=== PATIENT | male | born 2005 | race Hispanic/Latino ===

== ENCOUNTER 2024-05-05 01:49 | Observation (INO) | payer SELFPAY ==
--- OUTSIDE RECORDS SUMMARY | 2024-05-05 01:52 | XMS REPORT | Continuity of Care Document ---
Author Name Unknown Address [address] [place] [address] th[address] Address [address] [place] [address] 1 [address] [place] [address] Care Team Providers Care Safety Associate Name Role Phone Unavailable Unavailable Unavailable Encounters Start Date/Time End Date/Time Encounter Type Admission Type Attending Clinicians Care Facility Care Department Encounter ID Source 2022-06-20 13:26:31 2022-06-20 13:26:31 Outpatient [facility] [id number] Raman Graves
[2024-05-05 03:10] LABS: Absolute Monocytes 0.6 K/uL (0.1-1.3); Absolute Neutrophil 9.6 K/uL (1.8-8.0); Red Cell Distribution Width 13.3 % (12.1-15.2)
[2024-05-05 03:12] LABS: Absolute Lymphocytes (CBC) 1.9 K/uL (0.7-4.9); Basophils % 0.2 % (0-1.3); Hematocrit 43.7 % (39.6-49.0); Hemoglobin 15.2 g/dL (13.6-17.9); Lymphocytes % 15.6 % (15.3-44.8); MCH 30.9 pg (27.0-35.0); MCHC 34.7 g/dL (32.0-36.0); MCV 89.1 fL (80-100); MPV 7.6 fL (7.6-11.3); Monocytes % 5.3 % (3.3-12.3); Neutrophils % 78.9 % (41.7-73.7); Nucleated Red Blood Cells % 0.1 % (0-0); Platelets 264 thou/uL (152-406)
[2024-05-05 03:26] LABS: ALT/SGPT 22 U/L (16-61); AST/SGOT 13 U/L (15-37); Albumin 4.1 g/dL (3.4-5.0); Albumin/Globulin Ratio 1.1 (1.1-1.8); Alkaline Phosphatase 76 U/L (45-117); Anion Gap 8.2 mEq/L (5.0-15.0); BUN Blood Urea Nitrogen 10 mg/dL (7-18); Bicarbonate 27 mEq/L (21-32); Bilirubin Direct 0.2 mg/dL (0-0.2); Bilirubin Indirect, Calculated 0.7 mg/dL (0.2-0.8); Bilirubin Total 0.9 mg/dL (0.2-1.0); Globulin 3.9 g/dL (2.3-3.5); Glomerular Filtration Rate 127 ml/min (=/>90); Glucose Level 114 mg/dL (74-106); Lipase 14 U/L (13-75); NT PRO-BNP 37 pg/mL (<125); Potassium 3.2 mEq/L (3.5-5.1); Sodium Level 139 mEq/L (136-145)
[2024-05-05] MEDS ORDERED: KETOROLAC 30 MG/ML INJ ONE ×2 (03:28→09:47)
[2024-05-05] MEDS ORDERED: MORPHINE 2 MG/ML SYR ONE (03:29)
[2024-05-05] MEDS ORDERED: MORPHINE 4 MG/ML SYR ONE (03:29)
[2024-05-05] MEDS ORDERED: FAMOTIDINE 20 MG/2 ML VIAL IV ONE (03:29)
[2024-05-05] MEDS ORDERED: ONDANSETRON 4 MG/2 ML VIAL ONE ×2 (03:30→09:47)
[2024-05-05] MEDS ORDERED: NA CHLORIDE 0.9% 1,000 ML ONE ×2 (03:30→03:50)
[2024-05-05 03:52] LABS: Troponin High Sensitivity < 3.0 pg/mL (<58.9)
--- NOTE | 2024-05-05 06:09 | RAD REPORT ---
EXAM DESCRIPTION: Abdomen Pelvis W Contrast RadLex: CT ABDOMEN PELVIS WITH IV CONTRAST CLINICAL HISTORY: 19 years Male; ABD PAIN; IV ONLY Bed Name: 19 TECHNIQUE: CT of the abdomen and pelvis [with] intravenous contrast. All CT scans at this facility use dose modulation, iterative reconstruction, and/or weight based dosi ng when appropriate to reduce radiation dose to as low as reasonably achievable. COMPARISON: None. FINDINGS: Lower thorax: Lung bases are clear Abdomen: Stomach: Within normal limits Liver: No focal lesions. Mild periportal edema. No intrahepatic ductal distention. Gallbladder: Distended. Cholelithiasis. Mild stranding surrounding the gallbladder. Pancreas: Within normal limits Spleen: Within normal limits Right kidney: No hydronephrosis. No focal lesion. Mild striated nephrogram. Left kidney: No hydronephrosis. No focal lesion. Mild striated nephrogram. Adrenal glands: Within normal limits Vascular structures: Within normal limits Nodes: No lymphadenopathy by size criteria Pelvis: Small bowel: No significant distention. Appendix: Within normal limits Colon: No distention or acute pericolonic edema. Peritoneum: No free intraperitoneal fluid or air. Bones: No acute bone findings. Bladder: Unremarkable. Reproductive organs: No acute findings. IMPRESSION: 1. Distended gallbladder with cholelithiasis and mild stranding surrounding the gallbladder, concer ruperto for acute cholecystitis. Recommend dedicated ultrasound for further evaluation. 2. Mild periportal edema, nonspecific, can be seen in setting of hepatitis. Correlate with liver fu nction tests. 3. Mild striated nephrograms bilaterally, nonspecific, however can be seen in setting of pyelonephr itis. Additional differential considerations include acute tubular necrosis and/or systemic hypotension. Correlate with urinalysis. Electronically signed by: Althea Yanes MD 05/05/2024 06:04 AM [facility] Z9 Due to temporary technical issues with the PACS/[employer] reporting system, reports are being susanne d by the in-house radiologist without review as a courtesy to ensure prompt reporting the interpreting radiologist is fully responsible for the content of the report. Transcribed Date/Time: 05/05/2024 6:08 AM
--- NOTE | 2024-05-05 06:28 | ER ---
Nurse's Notes [facility] Name: Raffi Marti Age: 19 yrs Sex: Male : 2005 Arrival Date: 05/05/2024 Time: 01:49 Bed 19 Private MD: Diagnosis: Acute cholecystitis;Cholelithiasis with acute cholecystitis Presentation: 05/05 01:54 Chief complaint: Patient states: ABDOMINAL PAIN, NAUSEA AND VOMITING OFF AND ON FOR ha1 OVER A YEAR. 01:54 Coronavirus screen: Vaccine status: Patient reports being unvaccinated. Ebola Screen: ha1 No symptoms or risks identified at this time. Initial Sepsis Screen: Does the patient meet any 2 criteria? No. Patient's initial sepsis screen is negative. Does the patient have a suspected source of infection? No. Patient's initial sepsis screen is negative. Risk Assessment: Do you want to hurt yourself or someone else? Patient reports no desire to harm self or others. Onset of symptoms was May 05, 2024. 01:54 Method Of Arrival: Ambulatory ha1 01:54 Acuity: PARESH 3 ha1 Triage Assessment: 02:01 General: Appears uncomfortable, Behavior is cooperative, anxious. Pain: Complains of ha1 pain in abdomen Pain radiates to chest Pain currently is 10 out of 10 on a pain scale. Quality of pain is described as aching. Neuro: Level of Consciousness is awake, alert, obeys commands, Oriented to person, place, time, situation. Cardiovascular: Capillary refill < 3 seconds Patient's skin is warm and dry. Respiratory: Airway is patent Respiratory effort is even, unlabored, Respiratory pattern is regular, symmetrical. Historical: - Allergies: 02:01 No Known Allergies; ha1 - Immunization history:: Adult Immunizations up to date. - Infectious Disease History:: Denies. - Social history:: Smoking status: Patient denies any tobacco usage or history of. - Family history:: not pertinent. Screenin:02 Abuse screen: Denies threats or abuse. Denies injuries from another. Nutritional ha1 screening: No deficits noted. Tuberculosis screening: No symptoms or risk factors identified. 02:58 [facility] ED Fall Risk Assessment (Adult) History of falling in the last 3 months, kj2 including since admission No falls in past 3 months (0 pts) Confusion or Disorientation No (0 pts) Intoxicated or Sedated No (0 pts) Impaired Gait No (0 pts) Mobility Assist Device Used No (0 pt) Altered Elimination No (0 pt) Score/Fall Risk Level 0 - 2 = Low Risk Maintained a safe environment, Hourly rounding (assess needs \T\ fall precautionary measures) done. Assessment: 02:56 General: Appears in no apparent distress. Behavior is calm, cooperative. Pain: kj2 Complains of pain in chest and abdomen Pain currently is 5 out of 10 on a pain scale. Pain began years ago. Neuro: Level of Consciousness is awake, alert, obeys commands, Oriented to person, place, time, situation. Cardiovascular: Patient's skin is warm and dry. Respiratory: Airway is patent Respiratory effort is unlabored. GI: No signs and/or symptoms were reported involving the gastrointestinal system. : No signs and/or symptoms were reported regarding the genitourinary system. 03:50 Reassessment: Patient appears in no apparent distress at this time. Patient and/or kj2 family updated on plan of care and expected duration. Pain level reassessed. Patient is alert, oriented x 3, equal unlabored respirations, skin warm/dry/pink. 05:03 Reassessment: Patient appears in no apparent distress at this time. Patient and/or kj2 family updated on plan of care and expected duration. Pain level reassessed. Patient is alert, oriented x 3, equal unlabored respirations, skin warm/dry/pink. 06:00 Reassessment: Patient appears in no apparent distress at this time. Patient and/or kj2 family updated on plan of care and expected duration. Pain level reassessed. Patient is alert, oriented x 3, equal unlabored respirations, skin warm/dry/pink. 07:07 Reassessment: Patient appears in no apparent distress at this time. Patient and/or kj2 family updated on plan of care and expected duration. Pain level reassessed. Patient is alert, oriented x 3, equal unlabored respirations, skin warm/dry/pink. 07:18 General: Appears in no apparent distress. Behavior is calm, cooperative, appropriate ap3 for age. Pain: Complains of pain in abdomen. Neuro: Level of Consciousness is awake, alert, obeys commands, Oriented to person, place, time, situation. Cardiovascular: Patient's skin is warm and dry. Respiratory: Airway is patent Respiratory effort is even, unlabored. Vital Signs: 01:54 BP 129 / 81; Pulse 74; Resp 19 S; Temp 98.1(T); Pulse Ox 100% on R/A; Weight 81.65 kg; ha1 Height 6 ft. 1 in. ; Pain 10/10; 02:57 BP 131 / 73; Pulse 71; Resp 18; Pulse Ox 100% ; kj2 03:51 BP 120 / 77; Pulse 63; Resp 18; Pulse Ox 98% on R/A; oe 05:03 BP 106 / 92; Pulse 80; Resp 20; Pulse Ox 100% ; kj2 06:00 BP 112 / 70; Pulse 64; Resp 18; Pulse Ox 100% ; kj2 07:07 BP 120 / 70; Pulse 64; Resp 18; Pulse Ox 100% on R/A; kj2 08:54 BP 125 / 78; Pulse 87; Resp 17; Pulse Ox 100% on R/A; ap3 01:54 Body Mass Index 23.75 (81.65 kg, 185.42 cm) ha1 01:54 Pain Scale: Adult ha1 ED Course: 01:53 Patient arrived in ED. im 02:01 Triage completed. ha1 02:02 Walter Varela MD is Attending Physician. sp4 02:45 Shelby Jett, YONIS is Primary Nurse. kj2 02:55 Inserted saline lock: 20 gauge in right antecubital area, using aseptic technique. ha1 Blood collected. Flushed with 10 mL NS. 02:59 Patient has correct armband on for positive identification. Placed in gown. Bed in low kj2 position. Provided Education on: call light. 02:59 Arm band placed on Patient placed in an exam room, on a stretcher. kj2 03:16 EKG done, by ED staff, reviewed by Walter Varela MD. oe 03:22 Influenza Screen (a \T\ B) Sent. kj2 05:06 CT Abd/Pelvis - IV Contrast Only In Process Unspecified. EDMS 06:26 Nabil Thomas MD is Hospitalizing Provider. sp4 07:00 Inserted saline lock: 20 gauge in left antecubital area, using aseptic technique. ap3 Flushed with 10 mL NS. 07:05 US Abdomen Limited In Process Unspecified. EDMS 07:11 Report given to Alma Sánchez RN. kj2 07:18 Patient maintains SpO2 saturation greater than 95% on room air. ap3 07:19 Client placed on continuous cardiac and pulse oximetry monitoring. NIBP monitoring ap3 applied. ct manager on. Pulse ox on. NIBP on. 07:19 No provider procedures requiring assistance completed. ap3 08:55 Patient admitted, IV remains in place. ap3 Administered Medications: 07:06 Discontinued: ns 0.9% 1000 ml IV at 125 ml/hr Per protocol; to be given as a bolus over kj2 60 minutes 03:36 Drug: Ondansetron IVP 8 mg IVP once; over 2 minutes Route: IVP; Site: right antecubital;kj2 05:37 Follow up: Response: No adverse reaction kj2 03:38 Drug: morphine IVP or IV 6 mg IVP once over 4 mins Route: IVP; Infused Over: 4 mins; kj2 Site: right antecubital; 05:36 Follow up: Response: No adverse reaction kj2 03:42 Drug: Ketorolac IVP 30 mg IVP once Route: IVP; Site: right antecubital; kj2 05:36 Follow up: Response: No adverse reaction kj2 03:46 Drug: Famotidine IVP 20 mg IVP once; dilute with 10 mL 0.9% NaCl; give over 2 minutes kj2 Route: IVP; Site: right antecubital; 05:36 Follow up: Response: No adverse reaction kj2 03:48 Drug: NS 0.9% IV 1000 ml IV at 1 bolus Per protocol; to be given as a bolus over 60 kj2 minutes Route: IV; Rate: 1 bolus; Site: right antecubital; 04:48 Follow up: IV Status: Completed infusion; IV Intake: 1000ml kj2 04:01 Drug: NS 0.9% IV 1000 ml IV at 125 ml/hr Per protocol; to be given as a bolus over 60 kj2 minutes Route: IV; Rate: 125 ml/hr; Site: right antecubital; 07:04 Drug: Potassium Chloride IV 20 mEq IV at calculated rate once; administer over 1-2 kj2 hours Route: IV; Rate: calculated rate; Site: right antecubital; 08:54 Follow up: IV Status: Infusion continued upon admission ap3 07:05 Drug: D5-1/2 NS with KCl IV 20 mEq/L 1000 ml IV at 100 ml/hr continuous Route: IV; kj2 Rate: 100 ml/hr; Site: right antecubital; 08:54 Follow up: IV Status: Infusion continued upon admission ap3 07:07 Drug: Piperacillin-Tazobactam IVPB 3.375 grams IVPB once over 60 mins; (mix in NS 100 kj2 mL) Route: IVPB; Infused Over: 60 mins; Site: left antecubital; 08:01 Follow up: IV Status: Completed infusion ap3 Medication: 02:58 VIS not applicable for this client. kj2 Intake: 04:48 IV: 1000ml; Total: 1000ml. kj2 Outcome: 06:26 Decision to Hospitalize by Provider. sp4 08:55 Admitted to OR accompanied by nurse, via wheelchair, with chart, ap3 08:55 Condition: good 08:55 Instructed on the need for admit, Demonstrated understanding of instructions, 08:55 Patient left the ED. ap3 Signatures: Dispatcher [employer] EDMS Javon Lucas Amanda, RN RN ap3 Fani Tejada, RN RN ha1 Walter Varela MD MD sp4 Sanjuana Flores Krystal, RN RN kj2
--- NOTE | 2024-05-05 06:28 | EDPHYS ---
Physician Documentation [facility] Name: Raffi Marti Age: 19 yrs Sex: Male : 2005 Arrival Date: 05/05/2024 Time: 01:49 Bed 19 Private MD: ED Physician Walter Varela HPI: 05/05 05:01 This 19 yrs old Male presents to ER via Ambulatory with complaints of Chest sp4 Pain, Abdominal Pain. 05:01 19-year-old male presents with acute onset of right upper quadrant abdominal pain sp4 associated with vomiting and feeling of upset stomach associated also with some chest pain starting about 7 hours ago. Historical: - Allergies: 02:01 No Known Allergies; ha1 - Immunization history:: Adult Immunizations up to date. - Infectious Disease History:: Denies. - Social history:: Smoking status: Patient denies any tobacco usage or history of. - Family history:: not pertinent. ROS: 05:01 Constitutional: Negative for fever, chills, and weight loss, right upper quadrant sp4 abdominal pain and chest pain. 05:01 All other systems are negative, Exam: 05:01 Constitutional: This is a well developed, well nourished patient who is awake, alert, sp4 and in no acute distress. Head/Face: Normocephalic, atraumatic. Eyes: Pupils equal round and reactive to light, extra-ocular motions intact. Lids and lashes normal. Conjunctiva and sclera are not injected. Cornea within normal limits. Periorbital areas with no swelling, redness, or edema. ENT: Nares patent. No nasal discharge, no septal abnormalities noted. Tympanic membranes are normal and external auditory canals are clear. Oropharynx with no redness, swelling, or masses, exudates, or evidence of obstruction, uvula midline. Mucous membranes moist. Neck: Trachea midline, no thyromegaly or masses palpated, and no cervical lymphadenopathy. Supple, full range of motion without nuchal rigidity, or vertebral point tenderness. Chest/axilla: Normal chest wall appearance and motion. Nontender with no deformity. No lesions are appreciated. Cardiovascular: Regular rate and rhythm with a normal S1 and S2. No gallops, murmurs, or rubs. Normal PMI, no JVD. No pulse deficits. Respiratory: Lungs have equal breath sounds bilaterally, clear to auscultation and percussion. No rales, rhonchi or wheezes noted. No increased work of breathing, no retractions or nasal flaring. Abdomen/GI: Soft, with normal bowel sounds. No distension or tympany. No guarding or rebound. Positive for right upper quadrant abdominal tenderness positive for epigastric tenderness without rebound. Back: No spinal tenderness. No costovertebral tenderness. Male : Normal genitalia with no discharge or lesions. Skin: Warm, dry with normal turgor. Normal color with no rashes, no lesions, and no evidence of cellulitis. MS/ Extremity: Pulses equal, no cyanosis. Neurovascular intact. Full, normal range of motion. Neuro: Awake and alert, GCS 15, oriented to person, place, time, and situation. Cranial nerves II-XII grossly intact. Motor strength 5/5 in all extremities. Sensory grossly intact. Psych: Awake, alert, with orientation to person, place and time. Behavior, mood, and affect are within normal limits 05:01 ECG was reviewed by the Attending Physician. EKG at 0 255 normal sinus rhythm normal EKG rate 65 bpm Vital Signs: 01:54 BP 129 / 81; Pulse 74; Resp 19 S; Temp 98.1(T); Pulse Ox 100% on R/A; Weight 81.65 kg; ha1 Height 6 ft. 1 in. ; Pain 10/10; 02:57 BP 131 / 73; Pulse 71; Resp 18; Pulse Ox 100% ; kj2 03:51 BP 120 / 77; Pulse 63; Resp 18; Pulse Ox 98% on R/A; oe 05:03 BP 106 / 92; Pulse 80; Resp 20; Pulse Ox 100% ; kj2 06:00 BP 112 / 70; Pulse 64; Resp 18; Pulse Ox 100% ; kj2 07:07 BP 120 / 70; Pulse 64; Resp 18; Pulse Ox 100% on R/A; kj2 08:54 BP 125 / 78; Pulse 87; Resp 17; Pulse Ox 100% on R/A; ap3 01:54 Body Mass Index 23.75 (81.65 kg, 185.42 cm) ha1 01:54 Pain Scale: Adult ha1 MDM: 02:03 Medical Screening Exam initiated sp4 06:09 ED course: EXAM DESCRIPTION: Abdomen Pelvis W Contrast RadLex: CTABDOMEN PELVIS WITH IV sp4 CONTRAST CLINICAL HISTORY: 19 years Male; ABD PAIN; IV ONLYBed Name: 19 TECHNIQUE: CT of the abdomen and pelvis [with] intravenous contrast. All CT scans at this facility use dose modulation, iterative reconstruction, and/or weight based dosing when appropriate to reduce radiation dose to as low as reasonably achievable. COMPARISON: None. FINDINGS: Lower thorax: Lung bases are clear Abdomen: Stomach:Within normal limits Liver:No focal lesions. Mild periportal edema. No intrahepatic ductal distention. Gallbladder:Distended. Cholelithiasis. Mild stranding surrounding the gallbladder. Pancreas:Within normal limits Spleen:Within normal limits Right kidney:No hydronephrosis. No focal lesion. Mild striated nephrogram. Left kidney:No hydronephrosis. No focal lesion. Mild striated nephrogram. Adrenal glands:Within normal limits Vascular structures:Within normal limits Nodes:No lymphadenopathy by size criteria Pelvis: Small bowel:No significant distention. Appendix:Within normal limits Colon:No distention or acute pericolonic edema. Peritoneum: No free intraperitoneal fluid or air. Bones: No acute bone findings. Bladder: Unremarkable. Reproductive organs: No acute findings. IMPRESSION: 1. Distended gallbladder with cholelithiasis and mild stranding surrounding the gallbladder, concerning for acute cholecystitis. Recommend dedicated ultrasound for further evaluation. 2. Mild periportal edema, nonspecific, can be seen in setting of hepatitis. Correlate with liver function tests. 3. Mild striated nephrograms bilaterally, nonspecific, however can be seen in setting of pyelonephritis. Additional differential considerations include acute tubular necrosis and/or systemic hypotension. Correlate with urinalysis. Electronically signed by: Althea Yanes MD 05/05/2024 06:04 AM. 06:25 Differential diagnosis: acute pericarditis, anxiety, chest wall pain, esophagitis, sp4 gastritis, gastroesophageal reflux disease (GERD), hiatal hernia. HEART Score: History: Slightly Suspicious (0), ECG: Normal (0), Age: < or = 45 years (0), Risk Factors: No Risk Factors Known (0), Troponin: < or = 1 x Normal Limit (0), Total Score = 0. Data reviewed: vital signs, nurses notes, old medical records, lab test result(s), CBC, electrolytes, hepatic panel, EKG, radiologic studies, CT scan. Consideration of Admission/Observation Escalation of care including admission/observation considered. ED course: Patient will be admitted to Dr. Thomas. Acute cholecystitis will be managed by Dr. Caraballo. 05/05 02:03 Order name: Basic Metabolic Panel; Complete Time: 05:04 sp4 05/05 02:03 Order name: CBC with Diff; Complete Time: 05:04 sp4 05/05 02:03 Order name: LFT's; Complete Time: 05:04 sp4 05/05 02:03 Order name: NT PRO-BNP; Complete Time: 05:04 sp4 05/05 02:03 Order name: Troponin HS; Complete Time: 05:04 sp4 05/05 02:03 Order name: Influenza Screen (a \T\ B); Complete Time: 05:04 sp4 05/05 03:10 Order name: Lipase; Complete Time: 05:04 EDMS 05/05 04:29 Order name: CT Abd/Pelvis - IV Contrast Only; Complete Time: 08:38 sp4 05/05 06:08 Order name: US Abdomen Limited; Complete Time: 08:38 sp4 05/05 02:03 Order name: Cardiac monitoring; Complete Time: 03:17 sp4 05/05 02:03 Order name: EKG - Nurse/Tech; Complete Time: 03:17 sp4 05/05 02:03 Order name: IV Saline Lock; Complete Time: 03:46 sp4 05/05 02:03 Order name: Labs collected and sent; Complete Time: 03:46 sp4 05/05 02:03 Order name: O2 Per Protocol; Complete Time: 03:46 sp4 05/05 02:03 Order name: O2 Sat Monitoring; Complete Time: 03:46 sp4 05/05 06:10 Order name: NPO; Complete Time: 06:26 sp4 EC:55 Rate is 65 beats/min. Rhythm is regular, Normal Sinus Rhythm. QRS [place] is Normal. HI sp4 interval is normal. QRS interval is normal. QT interval is normal. No Q waves. T waves are Normal. No ST changes noted. Clinical impression: No evidence of ischemia. Interpreted by me. Reviewed by me. Administered Medications: 07:06 Discontinued: ns 0.9% 1000 ml IV at 125 ml/hr Per protocol; to be given as a bolus over kj2 60 minutes 03:36 Drug: Ondansetron IVP 8 mg IVP once; over 2 minutes Route: IVP; Site: right antecubital;kj2 05:37 Follow up: Response: No adverse reaction kj2 03:38 Drug: morphine IVP or IV 6 mg IVP once over 4 mins Route: IVP; Infused Over: 4 mins; kj2 Site: right antecubital; 05:36 Follow up: Response: No adverse reaction kj2 03:42 Drug: Ketorolac IVP 30 mg IVP once Route: IVP; Site: right antecubital; kj2 05:36 Follow up: Response: No adverse reaction kj2 03:46 Drug: Famotidine IVP 20 mg IVP once; dilute with 10 mL 0.9% NaCl; give over 2 minutes kj2 Route: IVP; Site: right antecubital; 05:36 Follow up: Response: No adverse reaction kj2 03:48 Drug: NS 0.9% IV 1000 ml IV at 1 bolus Per protocol; to be given as a bolus over 60 kj2 minutes Route: IV; Rate: 1 bolus; Site: right antecubital; 04:48 Follow up: IV Status: Completed infusion; IV Intake: 1000ml kj2 04:01 Drug: NS 0.9% IV 1000 ml IV at 125 ml/hr Per protocol; to be given as a bolus over 60 kj2 minutes Route: IV; Rate: 125 ml/hr; Site: right antecubital; 07:04 Drug: Potassium Chloride IV 20 mEq IV at calculated rate once; administer over 1-2 kj2 hours Route: IV; Rate: calculated rate; Site: right antecubital; 08:54 Follow up: IV Status: Infusion continued upon admission ap3 07:05 Drug: D5-1/2 NS with KCl IV 20 mEq/L 1000 ml IV at 100 ml/hr continuous Route: IV; kj2 Rate: 100 ml/hr; Site: right antecubital; 08:54 Follow up: IV Status: Infusion continued upon admission ap3 07:07 Drug: Piperacillin-Tazobactam IVPB 3.375 grams IVPB once over 60 mins; (mix in NS 100 kj2 mL) Route: IVPB; Infused Over: 60 mins; Site: left antecubital; 08:01 Follow up: IV Status: Completed infusion ap3 Disposition Summary: 05/05/24 06:26 Hospitalization Ordered Notes: Hospitalization Status: Observation sp4 Provider: Nabil Thomas sp4 Condition: Stable sp4 Problem: new sp4 Symptoms: have improved sp4 Bed/Room Type: Standard sp4 Location: [facility] ER HOLD(05/05/24 06:39) rv1 Room Assignment: ERHOLD-(05/05/24 06:39) rv1 Diagnosis - Acute cholecystitis sp4 - Cholelithiasis with acute cholecystitis sp4 Forms: - Medication Reconciliation Form sp4 - SBAR form sp4 - Leadership Thank You Letter sp4 Signatures: Dispatcher [employer] EDMS Ramon Daniel, KILN PLACER-C KILN PLACER-Cla1 Fani Tejada, RN RN ha1 Kirsty Jacobs rv1 Walter Varela MD MD sp4 Shelby Jett RN RN kj2 Alma Myers RN ap3 Corrections: (The following items were deleted from the chart) 02:03 02:03 BASIC METABOLIC PANEL+C.LAB.BRZ ordered. EDMS EDMS 02:03 02:03 CBC+H.LAB.BRZ ordered. EDMS EDMS 02:03 02:03 HEPATIC FUNCTION+C.LAB.BRZ ordered. EDMS EDMS 02:03 02:03 PROBNP+C.LAB.BRZ ordered. EDMS EDMS 02:03 02:03 Troponin High Sensitivity+C.LAB.BRZ ordered. EDMS EDMS 02:03 02:03 Influenza Screen (A \T\ B)+BA.LAB.BRZ ordered. EDMS EDMS 03:08 03:06 LIPASE+C.LAB.BRZ ordered. EDMS EDMS 04:29 04:29 Abdomen Pelvis W Con+CT.RAD.BRZ ordered. EDMS EDMS 06:08 06:08 Abdomen Limited+US.RAD.BRZ ordered. EDMS EDMS 06:39 06:26 Telemetry/MedSurg (observation) sp4 rv1 06:39 06:26 sp4 rv1
[2024-05-05] MEDS ORDERED: KCL 20 MEQ/100 mL IVPB 100 ML IV ONE (06:37)
[2024-05-05] MEDS ORDERED: NA CHLORIDE 0.9% 100 ML ONE (06:38)
[2024-05-05] MEDS ORDERED: PIPERACIL/TAZO 3.375 GM VIAL IV ONE (06:38)
[2024-05-05] MEDS ORDERED: D5.45NS W/KCL 20MEQ 1,000 ML IV ONE (06:39)
--- NOTE | 2024-05-05 07:36 | RAD REPORT ---
EXAM: Right upper quadrant ultrasound. CLINICAL HISTORY: ABD PAIN COMPARISON: None. FINDINGS: Gallbladder: Multiple shadowing gallstones. Bile ducts: No intrahepatic or extrahepatic biliary dilatation. Common bile duct measures 5 mm. Limited imaging of the liver shows no concerning finding. IMPRESSION: Cholelithiasis.
[2024-05-05] MEDS: Ringers Lactate 1,000 ML IV ONE (09:05)
--- NOTE | 2024-05-05 09:05 | P.HP ---
Certification for Inpatient Patient admitted to: Observation With expected LOS: <2 Midnights Patient will require the following post-hospital care: None Practitioner: I am a practitioner with admitting privileges, knowledge of patient current condition, hospital course, and medical plan of care. Services: Services provided to patient in accordance with Admission requirements found in Title 42 Section 412.3 of the Code of Federal Regulations Patient History Date of Service: 05/05/24 Reason for admission: Acute cholecystitis History of Present Illness: 19-year-old otherwise healthy male who presents to the emergency department chief complaint of epigastric pain, nausea, vomiting. He reports he has had about 7 days episode in the last 1 year typically after eating large amounts of food. He was evaluated in the emergency department labs are significant for a white blood cell count of 12.2, CT shows distended gallbladder with cholelithiasis and mild stranding surrounding gallbladder, mild periportal edema nonspecific which can be seen in the setting hepatitis, correlate with LFTs which are normal, mild striated nephrograms bilaterally nonspecific, correlate with urinalysis. Case was discussed with general surgery who recommends admission to the hospital service, plan for cholecystectomy. Allergies No Known Allergies Allergy (Unverified 05/05/24 07:31) Home Medications: NK [No Home Meds] 05/05/24 - Past Medical/Surgical History -: None -: Left wrist surgery Psychosocial/ Personal History: Works in [employer], lives at home with family - Social History Smoking Status: Unknown if ever smoked Alcohol use: No CD- Drugs: No Place of Residence: Home Review of Systems 10-point ROS is otherwise unremarkable Gastrointestinal: Nausea, Abdominal Pain Physical Examination - Vital Signs Temperature: 98.6 F Blood Pressure: 120/70 Pulse: 64 Respirations: 17 Pulse Ox (%): 99 - Physical Exam General: Alert, In no apparent distress, Oriented x3 HEENT: Atraumatic, PERRLA, Mucous membr. moist/pink, EOMI Neck: Supple, 2+ carotid pulse no bruit, No LAD Respiratory: Clear to auscultation bilaterally, Normal air movement Cardiovascular: Regular rate/rhythm, Normal S1 S2 Gastrointestinal: Normal bowel sounds, Tenderness (mild generalized tenderness) Musculoskeletal: No tenderness Integumentary: No rashes Neurological: Normal speech, Normal strength at 5/5 x4 extr, Normal affect - Studies Laboratory Data (last 24 hrs) 1205/05/24 05/05/24 03:06 02:50 02:50 WBC 12.20 H Hgb 15.2 Hct 43.7 Plt Count 264 Sodium 139 Potassium 3.2 L BUN 10 Creatinine 0.87 Glucose 114 H Total Bilirubin 0.9 AST 13 L ALT 22 Alkaline Phosphatase 76 Lipase Cancelled 14 Microbiology Data (last 24 hrs): 05/05/24 03:20 Nasopharnyx Influenza Type A Antigen Screen - Final 05/05/24 03:20 Nasopharnyx Influenza Type B Antigen Screen - Final Assessment and Plan - Plan Assessment: Acute cholecystitis Mild bilateral striated nephrograms on CT Plan: Acute cholecystitis N.p.o., IVF, IV antibiotics, as needed pain medications Plan to go to OR today for cholecystectomy Mild bilateral striated nephrograms on CT Denies flank pain, urinary symptoms Will obtain UA DVT PPX: SCD Code status: Full Discharge Plan: Home Plan to discharge in: 24 Hours - Advance Directives Does patient have a Living Will: No Does patient have a Durable POA for Healthcare: No - Code Status/Comfort Care Code Status Assessed: Yes (full code) Critical Care: No Time Spent Managing Pts Care (In Minutes): 57
--- NOTE | 2024-05-05 09:24 | P.CNS ---
Date of Consult: 05/05/24 Reason for consult: Abdominal pain History of present illness: Patient is a 19-year-old gentleman who presents to the emergency room with biliary colic. Patient has had multiple episodes of biliary colic over the last year. Usually the attacks occur after a large meal. This time patient had a large meal last night followed by epigastric and right upper quadrant pain associated with nausea and vomiting but no bloating, belching or heartburn. Patient denies any sore throat, runny nose, cough, headaches, dizziness, chest pain, fever or chills. Patient denies any diarrhea, constipation or blood per rectum. Patient denies any dysuria or hematuria. Review of systems: Otherwise unremarkable Past medical history: Negative Past surgical history: Left wrist surgery Allergies: No known drug allergies Social history: Patient denies smoking or drinking alcohol Family history: Noncontributory Vital signs: Stable, afebrile Physical exam: Awake, alert and oriented x 3 Head and neck exam: No neck masses, no JVD, throat clear, neck supple and no evidence of icterus Chest: Clear Heart: S1-S2 Abdomen: Soft, nondistended, positive bowel sounds, right upper quadrant tenderness with minimal rebound, no evidence of rigidity or guarding Extremity: Neurovascular intact Neuro: Nonfocal Diagnostic data: Leukocytosis with CT evidence of acute cholecystitis and cholelithiasis confirmed by ultrasound. LFTs are within normal limits. Assessment: Acute cholecystitis and cholelithiasis Plan/recommendation: Admit, n.p.o., IV fluids, IV antibiotics and to the OR for laparoscopic cholecystectomy possible open. Patient and family understand risk, benefits and alternatives and agrees to procedure. CC:
[2024-05-05] MEDS ORDERED: LIDOCAINE 2% MPF 5 ML VIAL ONE (09:47)
[2024-05-05] MEDS ORDERED: dexAMETHasone 10 MG/ML VIAL ONE (09:47)
[2024-05-05] MEDS ORDERED: ROCURONIUM 50 MG/5 ML VIAL IV ONE (09:48)
[2024-05-05] MEDS ORDERED: FENTANYL CITR 100 MCG/2 ML ONE (09:48)
[2024-05-05] MEDS ORDERED: MIDAZOLAM HCL 2 MG/2 ML INJ ONE (09:48)
[2024-05-05] MEDS ORDERED: propofoL 200 MG/20 ML VIAL IV ONE (09:48)
[2024-05-05] MEDS: BUPIVACAINE 0.5% PF 10 ML VIAL ONE (10:28)
[2024-05-05] MEDS ORDERED: Mastisol Adhesive Liq ONE (11:01)
[2024-05-05] MEDS ORDERED: MORPHINE 2 MG/ML SYR IV PRN (11:15)
[2024-05-05] MEDS ORDERED: ONDANSETRON 4 MG/2 ML VIAL IV PRN (11:15)
[2024-05-05] MEDS ORDERED: MEPERIDINE HCL 25 MG/ML SYR ONE (11:16)
--- NOTE | 2024-05-05 11:18 | P.OP ---
Date of Service: 05/05/24 Preop diagnosis: Acute cholecystitis and cholelithiasis Postop diagnosis: Same Procedure performed: Laparoscopic cholecystectomy Surgeon: Donaldo Caraballo MD Clinical Aide: None Estimated blood loss: Minimal Specimen: Gallbladder Findings: As above Anesthesia: General Complications: None Drains: None Fluids and blood products: Nonapplicable Disposition: Recovery room Operative note: Patient brought to the OR and placed in supine position. General anesthesia began. Patient prepped and draped in usual sterile fashion. Marcaine 0.5% infiltrated locally. 15 blade used to make a 1 cm supraumbilical midline incision. Subcutaneous tissue divided bleeding with cautery. Fascia identified and divided. #1 Vicryl stay suture placed. Peritoneal cavity entered with sharp and blunt dissection. 12 mm trocar placed into the peritoneal cavity under direct vision. Pneumoperitoneum established. Three 5 mm trocars placed under direct vision. 1 trocar placed in the epigastric region just to the right of midline. Two 5 mm trocar placed in the right subcostal region. Laparoscopy revealed acute inflammation of the gallbladder with some omental adhesions and distended gallbladder. Cautery used to remove the adhesions from the gallbladder fundus and body. Gallbladder aspirated of clear bile consistent with hydrops and acute cholecystitis. Fundus identified and retracted superiorly. Infundibulum identified and retracted inferolaterally. Cystic duct and cystic artery clearly identified with blunt dissection. Clips placed and both structures divided. Cautery used to remove the gallbladder from the liver bed. Bleeding on the liver bed controlled with cautery. Gallbladder retrieved the umbilicus via Endo Catch bag. Right upper quadrant irrigated and effluent clear. No evidence of bleeding or bile leakage appreciated. Subsequently all trocars removed under direct vision. Stay sutures tied to each other to reapproximate the fascial defect. Subcutaneous wounds irrigated and bleeding controlled cautery. 3-0 chromic used to approximate subcu tissue and close skin. Sterile dressing applied. Patient awakened and taken to recovery room in good general condition. CC:
[2024-05-05] MEDS: PIPER TAZO 3.375 GM in NA CHLORIDE 0.9% 100 ML IV SCH (13:47)
[2024-05-05] MEDS: NA CHLORIDE 0.9% 1,000 ML IV SCH (13:47)
[2024-05-05] MEDS: HYDROMORPHONE HCL 1 MG/ML INJ IV PRN (16:38)
[2024-05-05 19:52] VITALS: BMI 3515.0
[2024-05-06] MEDS: HYDROCODONE/APAP 7.5/325 MG TAB PO PRN (02:27)
[2024-05-06 05:18] LABS: Absolute Lymphocytes (CBC) 1.3 K/uL (0.7-4.9); Absolute Monocytes 0.9 K/uL (0.1-1.3); Absolute Neutrophil 7.9 K/uL (1.8-8.0); Basophils % 0.1 % (0-1.3); Hematocrit 37.1 % (39.6-49.0); Hemoglobin 12.9 g/dL (13.6-17.9); Lymphocytes % 12.6 % (15.3-44.8); MCH 31.2 pg (27.0-35.0); MCHC 34.6 g/dL (32.0-36.0); MPV 8.3 fL (7.6-11.3); Monocytes % 8.9 % (3.3-12.3); Neutrophils % 78.4 % (41.7-73.7); Platelets 180 thou/uL (152-406); RBC Red Blood Cell Count 4.12 M/uL (4.33-5.43); Red Cell Distribution Width 13.2 % (12.1-15.2)
--- NOTE | 2024-05-06 09:14 | PN ---
Date of Progress Note: 05/06/2024 Subjective: The patient is awake, alert, tolerating clear liquid. He did have acute onset of right lower quadrant pain when he was trying to get out of bed. He is getting better slowly. His vitals a re stable. He is afebrile. His H and H are stable. His abdomen is benign. Assessment: Status post laparoscopic cholecystectomy for acute cholecystitis and cholelithiasis. Recommendation: Monitor the patient this a.m. for pain management and make sure he tolerates his henny ch and then after that he can be cleared for discharge. Discharge instructions given. Case discusse d with the hospitalist team. JOON/SUSAN Voice ID: [id number] Report ID: [id number]
[2024-05-06 12:23] VITALS: BP 112/69; TEMP 97.9
--- NOTE | 2024-05-06 14:05 | P.DS ---
Admission Date: 05/05/24 Discharge Date: 05/06/24 Disposition: ROUTINE DISCHARGE Discharge Condition: GOOD Reason for Admission: Acute cholecystitis Brief History of Present Illness: 19-year-old otherwise healthy male who presents to the emergency department chief complaint of epigastric pain, nausea, vomiting. He reports he has had about 7 days episode in the last 1 year typically after eating large amounts of food. He was evaluated in the emergency department labs are significant for a white blood cell count of 12.2, CT shows distended gallbladder with cholelithiasis and mild stranding surrounding gallbladder, mild periportal edema nonspecific which can be seen in the setting hepatitis, correlate with LFTs which are normal, mild striated nephrograms bilaterally nonspecific, correlate with urinalysis. Case was discussed with general surgery who recommends admission to the hospital service, plan for cholecystectomy. Hospital Course: Assessment: Acute cholecystitis Patient underwent uncomplicated cholecystectomy, tolerating diet, passing gas, ambulatory. stable for DC and OP FU in one week Vital Signs/Physical Exam: Temp Pulse Resp BP Pulse Ox 97.9 F 90 16 112/69 96 05/06/24 12:00 05/06/24 12:00 05/06/24 12:26 05/06/24 12:00 05/06/24 12:26 General: Alert, In no apparent distress, Oriented x3 HEENT: Atraumatic, PERRLA, EOMI Neck: Supple, JVD not distended Respiratory: Clear to auscultation bilaterally, Normal air movement Cardiovascular: Regular rate/rhythm, Normal S1 S2 Gastrointestinal: Normal bowel sounds, No tenderness Musculoskeletal: No tenderness Integumentary: No rashes Neurological: Normal speech, Normal tone, Normal affect Laboratory Data at Discharge: WBC 10.10 thou/uL (4.3-10.9) 05/06/24 04:45 Hgb 12.9 g/dL (13.6-17.9) L D 05/06/24 04:45 Hct 37.1 % (39.6-49.0) L 05/06/24 04:45 Plt Count 180 thou/uL (152-406) D 05/06/24 04:45 Sodium 139 mEq/L (136-145) 05/05/24 02:50 Potassium 3.2 mEq/L (3.5-5.1) L 05/05/24 02:50 BUN 10 mg/dL (7-18) 05/05/24 02:50 Creatinine 0.87 mg/dL (0.70-1.30) 05/05/24 02:50 Glucose 114 mg/dL (74-106) H 05/05/24 02:50 Total Bilirubin 0.9 mg/dL (0.2-1.0) 05/05/24 02:50 AST 13 U/L (15-37) L 05/05/24 02:50 ALT 22 U/L (16-61) 05/05/24 02:50 Alkaline Phosphatase 76 U/L (45-117) 05/05/24 02:50 Lipase Cancelled 05/05/24 03:06 Home Medications: Amox/Clavulanate [Augmentin 875-125 Tab] 875 mg PO BID #14 tab 05/06/24 Hydrocodone 7.5/APAP 325 [Penn 7.5/325 mg*] 1 tab PO Q6H PRN #15 tab 05/06/24 New Medications: Amox/Clavulanate [Augmentin 875-125 Tab] 875 mg PO BID #14 tab Hydrocodone 7.5/APAP 325 [Penn 7.5/325 mg*] 1 tab PO Q6H PRN #15 tab PRN Reason: Pain Scale 5-7 (Moderate) Physician Discharge Instructions: Remove outer dressing in a.m. and shower Keep Steri-Strips on at all times Schedule spirometry as instructed Resume home meds and diet No heavy lifting or strenuous activity Antibiotics and pain medicine sent to [facility] in [place] Follow-up my office 1 week, call for appointment Diet: Regular Activity: No lifting more than 10 lbs Followup: NONE,NONE [Primary Care Provider] - Donaldo Caraballo MD [ACTIVE - CAN ADMIT] - 05/14/24 Time spent managing pt's care (in minutes): 35
[2024-05-06 14:13] VITALS: O2SAT 96
--- NOTE | 2024-05-07 11:34 | EKG ---
Test Date: 2024-05-05 Test Time: 02:55:04 Electronic Imaging System Operator: SUDHEER MEASUREMENT RESULTS: Intervals: Rate: 66 HI: 116 QRSD: 110 QT: 386 QTc: 404 [place]: P: 66 HI: 116 QRS: 98 T: 89 INTERPRETIVE STATEMENTS: Normal sinus rhythm early repolarization, LVH Abnormal ECG No previous ECG available for comparison Electronically Signed On 05-07-24 11:33:45 [employer] OPERATOR by Steve Castañeda
--- NOTE | 2024-05-07 11:34 | EKG ---
Test Date: 2024-05-05 Test Time: 02:55:42 [employer]: SUDHEER MEASUREMENT RESULTS: Intervals: Rate: 65 IA: 116 QRSD: 108 QT: 376 QTc: 391 [place]: P: 69 IA: 116 QRS: 99 T: 87 INTERPRETIVE STATEMENTS: Normal sinus rhythm LVH, early repolarization Abnormal ECG Compared to ECG 05/05/2024 02:55:04 No significant changes Electronically Signed On 05-07-24 11:33:09 FUR COAT SEWER by Steve Castañeda
== END 2024-05-06 14:29 | disposition home or self-care (01) ==
LOC: ER 01:49 → ERHOLD 06:55 → 4TH 10:07 → 2ND 12:25
PROVIDERS: ADMIT Hospitalist; ATTEND Hospitalist
PROC: 0FT44ZZ Resection of Gallbladder, Percutaneous Endoscopic Approach (ICD-10-PCS; principal; 2024-05-05 09:00)
DX: K80.12 Calculus of gallbladder with acute and chronic cholecystitis without obstruction (principal)
CPT/HCPCS: 36415; 74177; 76705; 80048; 80076; 83690; 83880; 84484; 85025; 87804; 88304; 93005; 94010; 99285; G0378; J1100; J1171; J2003; J2175; J2250; J2270; J2405; J2543; J2704; J3010; J3480; J7030; J7120; Q9967